=== PATIENT | female | born 1970 | race Caucasian/White ===

== ENCOUNTER → 2017-01-11 | Outpatient (CLI) | payer OTHER ==
[~2017-01-11] MED LIST: COLA100C2 OR; IBUP600T OR; LIDO5DIS EX; LYRI75CA OR; NO DOZ OR; PAME50CA OR; PERC5TAB8 OR; VICO5TAB OR; VITA-113 OR
--- NOTE | 2017-01-11 12:14 | REP ---
LUMBAR SPINE, FIVE VIEWS: HISTORY: Lumbago. There is no acute fracture or subluxation. The L4-5 intervertebral disc is decreased in height consistent with disc degeneration. A small anterior osteophyte is present on L4. The facet joints are normal in appearance. IMPRESSION: Degenerative change as described above.
== END ==
LOC: M CLY 11:25
PROVIDERS: ATTEND Family Medicine
DX: M54.5 Low back pain (principal)

== ENCOUNTER → 2019-09-12 | Outpatient (CLI) | payer OTHER ==
--- NOTE | 2019-09-12 14:32 | REP ---
MRI brain: 09/12/2019. Indication: Headache. Comparison: 09/18/2010. Technique: Multiplanar short and long TR sequences of the brain were obtained without IV Gadolinium. Findings: There are no areas of restricted diffusion. There is no elevated intracranial pressure detected, mass effect or hydrocephalous. There is no intracranial hemorrhage. Midline structures, and craniocervical junction are unremarkable. There are a few small foci of elevated T2 prolongation within the periventricular and subcortical white matter. The large intracranial flow voids are present. Small bilateral mastoid effusions are noted. Impression: No acute intracranial process. Nonspecific foci of abnormal white matter signal with considerations including sequelae of chronic microangiopathic ischemic disease, the demyelinating process, Lyme's disease and additional it is likely etiologies. Electronically Signed by Giovanni Rodriguez DO 09/12/2019 02:23 P
--- NOTE | 2019-09-12 14:50 | REP ---
MRI cervical spine: 09/12/2019. Indication: Cervical radiculopathy. Comparison: 09/20/2010. Technique: Multiplanar short and long TR sequences of the cervical spine were obtained without IV Gadolinium. Findings: Vertebral body alignment is anatomic. Minimal endplate degenerative signal changes are present superiorly at C7. There is abnormal elevated T2 signal within the cord and extends from the level of C2 to C6 particularly on the right and centrally. There is questionable elevated T2 and T1 signal within the floor of mouth/tongue base on the right which is incompletely evaluated on this study. CT/C3: There is no disc herniation or significant spinal canal / neural foraminal narrowing. C3/C4: Bilateral uncovertebral proliferation is present more pronounced on the left with moderate to severe left and mild right neural foraminal narrowing. There is mild narrowing of the spinal canal. C4/C5: Diffuse disc osteophyte complex is present with mild spinal canal and neural foraminal narrowing. C5/C6: There is a very small posterior central disc protrusion without significant spinal canal or neural foraminal narrowing. C6/C7: Diffuse disc osteophyte complex is present with a small superimposed posterior central disc extrusion with minimal caudal migration. Mild spinal canal and neural foraminal narrowing is present. C7/T1: Unremarkable. Impression: Nonspecific abnormal cord signal particularly anteriorly on the right and centrally as described. Considerations include transverse myelitis, a demyelinating process and other less likely etiologies. Please correlate clinically. CSF sampling may be helpful. Multilevel degenerative sequelae most pronounced at C6/C7 without significant spinal canal narrowing. No cord compression. Questionable tissue prominence and abnormal signal within the right floor of mouth/tongue base. Direct inspection correlation is recommended. Electronically Signed by Giovanni Rodriguez DO 09/12/2019 02:42 P
--- NOTE | 2019-09-12 15:01 | REP ---
MRI lumbar spine: 09/12/2019. Indication: Lumbar radiculopathy. Comparison: None. Technique: Multiplanar short and long TR sequences of the lumbar spine were obtained without IV Gadolinium. Findings: Vertebral body alignment is anatomic. No significant marrow signal abnormalities are present. Disc space height and signal are well maintained throughout. The paraspinal soft tissues are unremarkable. L1/L2: Unremarkable. L2/L3: Bulging disc is present most pronounced anteriorly on the right without significant spinal canal or neural foraminal narrowing. L3/L4: Mild diffuse disc bulges present without significant spinal canal or neural foraminal narrowing. L4/L5: There is a far right lateral disc protrusion which does not contact the exiting L4 nerve root or result in significant neural foraminal narrowing. The spinal canal and left neural foramen are widely patent. L5/S1: Unremarkable. Impression: Relatively mild degenerative sequelae as described with a small far right lateral L4/L5 disc herniation. Electronically Signed by Giovanni Rodriguez DO 09/12/2019 02:53 P
== END ==
LOC: M RAD 11:44
PROVIDERS: ATTEND Family Medicine
DX: G62.9 Polyneuropathy, unspecified (principal); R51 Headache; M51.16 Intervertebral disc disorders with radiculopathy, lumbar region; M50.222 Other cervical disc displacement at C5-C6 level; M50.223 Other cervical disc displacement at C6-C7 level

== ENCOUNTER → 2019-09-13 | Outpatient (REF) | payer OTHER ==
[2019-09-13 18:57] LABS: BASO % 0.5 % (0.0-1.0); EOS # 0.1 10^3/uL (0.0-0.5); EOS % 2.2 % (0.0-3.0); HEMATOCRIT 44.2 % (36.0-47.0); HEMOGLOBIN 14.7 g/dl (12.0-15.5); LYMPH # 1.6 10^3/uL (1.5-5.0); LYMPH % 26.9 % (24.0-44.0); MEAN CORPUSCULAR HGB CONC 33.3 g/dl (32.0-36.5); MEAN CORPUSCULAR VOLUME 105.2 fl (80.0-96.0); MONO # 0.7 10^3/uL (0.0-0.8); MONO % 12.4 % (0.0-5.0); NEUTROPHILS # 3.4 10^3/uL (1.5-8.5); NEUTROPHILS % 57.7 % (36.0-66.0); PLATELET COUNT, AUTOMATED 252 10^3/uL (150-450); WHITE BLOOD COUNT 5.8 10^3/uL (4.0-10.0)
[2019-09-13 19:12] LABS: ALBUMIN 3.9 GM/DL (3.2-5.2); ALT/SGPT 34 U/L (12-78); BILIRUBIN,TOTAL 0.6 MG/DL (0.2-1.0); BLOOD UREA NITROGEN 11 MG/DL (7-18); CALCIUM LEVEL 9.6 MG/DL (8.5-10.1); CARBON DIOXIDE LEVEL 31 MEQ/L (21-32); CHLORIDE LEVEL 106 MEQ/L (98-107); CREATININE FOR GFR 0.71 MG/DL (0.55-1.30); FOLATE 5.4 NG/ML (>5.4); GLOMERULAR FILTRATION RATE > 60.0 (>58); GLUCOSE, FASTING 100 MG/DL (70-100); POTASSIUM SERUM 4.4 MEQ/L (3.5-5.1); SODIUM LEVEL 139 MEQ/L (136-145); TOTAL PROTEIN 7.2 GM/DL (6.4-8.2); VITAMIN B12 LEVEL 373 PG/ML (247-911)
[2019-09-17 00:10] LABS: Lyme Disease IgG/IgM Antibodie <0.91 ISR (0.00-0.90); Lyme Disease IgM Ab Quantitati <0.80 index (0.00-0.79)
== END ==
LOC: M SFHCCLAY 10:24
PROVIDERS: ATTEND Family Medicine
DX: G62.9 Polyneuropathy, unspecified (principal); R51 Headache; M54.5 Low back pain

== ENCOUNTER → 2022-02-03 | Outpatient (REF) | payer OTHER ==
[2022-02-03 16:18] LABS: BASO % 0.5 % (0.0-1.0); EOS # 0.2 10^3/uL (0.0-0.5); EOS % 2.4 % (0.0-3.0); HEMOGLOBIN 15.3 g/dl (12.0-15.5); LYMPH # 2.2 10^3/uL (1.5-5.0); LYMPH % 29.5 % (24.0-44.0); MEAN CORPUSCULAR HEMOGLOBIN 34.3 pg (27.0-33.0); MEAN CORPUSCULAR HGB CONC 33.3 g/dl (32.0-36.5); MEAN CORPUSCULAR VOLUME 103.1 fl (80.0-96.0); MONO # 0.7 10^3/uL (0.0-0.8); MONO % 9.7 % (2.0-8.0); NEUTROPHILS # 4.3 10^3/uL (1.5-8.5); NEUTROPHILS % 57.8 % (36.0-66.0); PLATELET COUNT, AUTOMATED 235 10^3/uL (150-450); RED BLOOD COUNT 4.46 10^6/uL (4.00-5.40); WHITE BLOOD COUNT 7.5 10^3/uL (4.0-10.0)
[2022-02-03 16:50] LABS: ALBUMIN 4.2 GM/DL (3.2-5.2); ALT/SGPT 28 U/L (12-78); BILIRUBIN,TOTAL 0.3 MG/DL (0.2-1.0); BLOOD UREA NITROGEN 9 MG/DL (7-18); CALCIUM LEVEL 9.5 MG/DL (8.5-10.1); CARBON DIOXIDE LEVEL 31 MEQ/L (21-32); CHLORIDE LEVEL 107 MEQ/L (98-107); CREATININE FOR GFR 0.74 MG/DL (0.55-1.30); GLOMERULAR FILTRATION RATE > 60.0 (>58); GLUCOSE, FASTING 81 MG/DL (70-100); POTASSIUM SERUM 4.5 MEQ/L (3.5-5.1); SODIUM LEVEL 140 MEQ/L (136-145); THYROID STIMULATING HORMONE 0.655 uIU/ML (0.358-3.740); TOTAL PROTEIN 7.3 GM/DL (6.4-8.2)
[2022-02-03 16:53] LABS: TOTAL T3 77.8 NG/DL (60.0-181.0)
[2022-02-03 17:04] LABS: ERYTHROCYTE SEDIMENTATION RATE 4 mm/hr (0-20)
== END ==
LOC: M SFHCCLAY 13:22
PROVIDERS: ATTEND Family Medicine
DX: R03.0 Elevated blood-pressure reading, without diagnosis of hypertension (principal); G62.9 Polyneuropathy, unspecified; R19.4 Change in bowel habit

== ENCOUNTER 2023-05-16 07:33 | Day surgery (SDC) | payer OTHER ==
[~2023-05-16] VITALS: Ht 157.5 cm; Wt 73.5 kg
[2023-05-16] MEDS ORDERED: propofoL 200 MG/20 ML VIAL As Ordered ONE ×2 (08:27→09:20)
[2023-05-16 10:12] VITALS: TEMP 97.4
[2023-05-16 10:28] VITALS: BP 133/82; O2SAT 99
== END 2023-05-16 10:50 | disposition home or self-care (01) ==
LOC: M OPP 07:33
PROVIDERS: ATTEND Internal Medicine Gastroenterology
DX: D12.3 Benign neoplasm of transverse colon (principal); D12.4 Benign neoplasm of descending colon; D12.8 Benign neoplasm of rectum; K64.8 Other hemorrhoids; K57.30 Diverticulosis of large intestine without perforation or abscess without bleeding; K58.1 Irritable bowel syndrome with constipation; F17.200 Nicotine dependence, unspecified, uncomplicated; Z88.1 Allergy status to other antibiotic agents; Z88.5 Allergy status to narcotic agent; Z88.6 Allergy status to analgesic agent; Z91.040 Latex allergy status

== ENCOUNTER → 2023-12-18 | Outpatient (REF) | payer OTHER ==
[2023-12-18 18:02] LABS: HEMOGLOBIN 14.7 g/dl (12.0-15.5); MEAN CORPUSCULAR HEMOGLOBIN 34.7 pg (27.0-33.0); MEAN CORPUSCULAR HGB CONC 33.4 g/dl (32.0-36.5); MEAN CORPUSCULAR VOLUME 103.8 fl (80.0-96.0); PLATELET COUNT, AUTOMATED 243 10^3/uL (150-450); RED BLOOD COUNT 4.24 10^6/uL (4.00-5.40); WHITE BLOOD COUNT 5.3 10^3/uL (4.0-10.0)
[2023-12-18 18:22] LABS: FOLATE 10.08 NG/ML (>5.4)
[2023-12-18 18:23] LABS: VITAMIN B12 LEVEL 285 PG/ML (211-911)
[2023-12-18 18:26] LABS: ALBUMIN 3.9 G/DL (3.2-5.2); ALKALINE PHOSPHATASE 75 U/L (46-116); ALT/SGPT 17 U/L (7.0-40); AST/SGOT 17 U/L (<34); BILIRUBIN,TOTAL 0.4 MG/DL (0.3-1.2); BLOOD UREA NITROGEN 10 MG/DL (9-23); CALCIUM LEVEL 9.8 MG/DL (8.5-10.1); CARBON DIOXIDE LEVEL 29 MMOL/L (20-31); CHLORIDE LEVEL 107 MMOL/L (98-107); CHOLESTEROL LEVEL 218 MG/DL (<200); CHOLESTEROL RISK RATIO 2.97 (<5); CREATININE FOR GFR 0.69 MG/DL (0.55-1.30); GLOMERULAR FILTRATION RATE > 60.0 (>51); GLUCOSE, FASTING 104 MG/DL (60-100); HDL CHOLESTEROL 73.2 MG/DL (>40); LDL CHOLESTEROL 126.6 MG/DL (<100); NON-HDL-C 144.8 MG/DL; POTASSIUM SERUM 4.7 MMOL/L (3.5-5.1); SODIUM LEVEL 141 MMOL/L (136-145); TOTAL PROTEIN 6.6 G/DL (5.7-8.2); TRIGLYCERIDES LEVEL 91 MG/DL (<150)
== END ==
LOC: M SFHCCLAY 09:48
PROVIDERS: ATTEND Family Medicine
DX: R03.0 Elevated blood-pressure reading, without diagnosis of hypertension (principal); E78.2 Mixed hyperlipidemia; G62.9 Polyneuropathy, unspecified

== ENCOUNTER → 2024-01-08 | Outpatient (CLI) | payer OTHER | LOC: M PLAIMG 14:35 | PROVIDERS: ATTEND Family Medicine | DX: M54.12 Radiculopathy, cervical region (principal) ==

== ENCOUNTER → 2024-03-18 | Outpatient (CLI) | payer OTHER | LOC: M CLY 08:18 | PROVIDERS: ATTEND Family Medicine | DX: M19.041 Primary osteoarthritis, right hand (principal) ==

== ENCOUNTER → 2024-03-18 | Outpatient (CLI) | payer OTHER | LOC: M CLY 07:50 | PROVIDERS: ATTEND Family Medicine | DX: Z53.9 Procedure and treatment not carried out, unspecified reason (principal) ==